=== PATIENT | male | born 2000 ===

== ENCOUNTER 2021-10-05 03:25 | Emergency (ER) | payer OTHER, SELFPAY ==
[2021-10-05] MEDS ORDERED: Lidocaine Viscous Sol 2% 15 ml UD Cup ONE (03:45)
[2021-10-05] MEDS ORDERED: Mag-Al 1200 mg/1200 mg/30 ML UDCUP ONE (03:45)
== END 2021-10-05 04:30 | disposition home or self-care (01) ==
LOC: ERS 03:25
DX: R10.13 Epigastric pain (principal); R05.9 Cough, unspecified
CPT/HCPCS: 71045; 93005